=== PATIENT | male | born 1965 | race Hispanic/Latino ===

== ENCOUNTER 2019-11-17 09:01 | Day surgery (SDC) | payer BC ==
[~2019-11-17] VITALS: Ht 172.7 cm; Wt 92.1 kg
[~2019-11-17 09:01] MED LIST: COZAAR25 MG PO; GLUCOPHAGE500 MG PO; LIPITOR20 MG PO
[2019-11-17] MEDS ORDERED: TIMOLOL MALEATE5 M2 OP (09:26)
[2019-11-17] MEDS ORDERED: BRIMONIDINE TART5 M1 OD (09:26)
[2019-11-17] MEDS ORDERED: PRED FORTE5 ML OP (09:27)
--- NOTE | 2019-11-17 10:37 | NUR ---
11/17/19 Quiana Solano 1032-PATIENT ARRIVED TO PACU ON 2L NC RR EVEN LAYING LEFT LATERAL. IVF INFUSING AND ABDOMEN SOFT. PATIENT SNORING. AROUSES TO VERBAL STIMULI VERY DROWSY.
--- NOTE | 2019-11-17 17:13 | OR ---
[facility] [address] [place], [place] [address] Signed DATE OF OPERATION: 11/17/2019 SURGEON: Carlita Champion MD PREOPERATIVE DIAGNOSIS: Change in bowel habits with constipation. POSTOPERATIVE DIAGNOSIS: A 4 mm polyp at 45 cm. PROCEDURE: Colonoscopy with hot biopsy. ESTIMATED BLOOD LOSS: None. INDICATIONS: Neno is a 54-year-old gentleman, who had stopped smoking about four years ago. He has been having trouble with constipation ever since. This represents a change in bowel habits for him. He is now using MiraLAX 3 times a day with good results. He told me there is no family history of colon cancer or polyps. He was asked to see me with respect to the above. I met with Neno and his in the office. I gave him a pamphlet on colonoscopy and we looked at that together along with the risks including, but not limited to gas bloating, crampy abdominal pain, bleeding, perforation requiring surgery, and missed diagnosis. We also discussed the need for IV conscious sedation. He had expressed understanding and wished to proceed. DESCRIPTION OF PROCEDURE: Neno was taken into our endoscopy suite and placed in the left lateral decubitus position. He was given IV sedation with 6 mg of Versed and 125 mcg of fentanyl. A digital rectal exam was performed and this was unremarkable. The prostate gland does show some induration. The adult colonoscope was introduced and advanced under direct visualization of camera into the cecum itself without difficulty. His prep was good. He had a couple areas of liquid stool, which was suctioned out. We could see the appendiceal orifice and the ileocecal valve. The scope was slowly withdrawn. We took pictures throughout for photodocumentation. He had just a tiny 4 mm polyp back at 45 cm. It was easily removed with hot biopsy forceps. There was no diverticulosis. The rectum was unremarkable. Upon retroflexion of scope, there was no additional pathology noted above the anal canal. After this, the gas was suctioned out and the colonoscope removed. Neno tolerated the procedure quite well. Electronically Signed By: CARLITA CHAMPION MD 11/17/19 1713 PATIENT NAME: NENO GUAJARDO OPERATIVE REPORT DATE OF : 65 REPORT #: [id number] PHYSICIAN: CARLITA CHAMPION MD PCP: RAFY ALBERTO REPORT IS CONFIDENTIAL AND NOT TO BE RELEASED WITHOUT AUTHORIZATION [address] [address] Signed RECOMMENDATIONS: Neno will follow up my office in 7 to 14 days to review his results. Carlita Champion MD ALB/REUBENL /[id number] cc: MD Rafy Pena PA Copies: CARLITA CHAMPION MD, DAVID PA ~ Electronically Signed By: CARLITA CHAMPION MD 11/17/19 1713 PATIENT NAME: NENO GUAJARDO OPERATIVE REPORT DATE OF : 65 REPORT #: [id number] PHYSICIAN: CARLITA CHAMPION MD PCP: RAFY ALBERTO REPORT IS CONFIDENTIAL AND NOT TO BE RELEASED WITHOUT AUTHORIZATION
--- NOTE | 2019-11-22 12:50 | PATH ---
[facility] [address] [place], [place] [address] Signed SPECIMEN(S): A COLON POLYP AT 45 CM SPECIMEN SOURCE: A. COLON POLYP AT 45 CM CLINICAL HISTORY: Screening colonoscopy; constipation. MICROSCOPIC DESCRIPTION: Histologic sections of all submitted blocks are examined by light microscopy. These findings, together with the gross examination, support the pathologic diagnosis. FINAL PATHOLOGIC DIAGNOSIS: Colon, polyp at 45 cm, biopsy: - Benign colonic mucosa with prominent intramucosal lymphoid aggregate - No evidence of neoplasia. COMMENT: Sections of colonic tissue demonstrate a benign intramucosal lymphoid aggregate. Intramucosal lymphoid aggregates can sometimes appear as polyps endoscopically. They have no clinical significance. There is no evidence of dysplasia or malignancy. TWK:vlg:[id number] GROSS DESCRIPTION: The specimen, labeled "JR, 1," and designated on the requisition "colon polyp at 45 cm," is received in formalin and consists of one dominguez soft tissue fragment that measures 0.3 cm in greatest dimension. The specimen is entirely submitted in cassette (A1). AT (under the direct supervision of a pathologist) The Gross Description was prepared using a voice recognition system. The report was reviewed for accuracy; however, sound-alike word errors, addition and/or deletions may occur. If there is any question about this report, please contact Client Services. PERFORMING LABORATORY: The technical component was performed by [facility], [address] [place] [id number] (Principal Security Architect: Heather Lock MD; CLIA# [id number]). The professional interpretation was performed by [facility], [facility], [address] [place] [address]. PATIENT NAME: SCAR GUAJARDO PATHOLOGY DATE OF : 65 REPORT #: [id number] PHYSICIAN: MIRIAM PATHOLOGY PCP: RAFY ALBERTO REPORT IS CONFIDENTIAL AND NOT TO BE RELEASED WITHOUT AUTHORIZATION [address] [place], [place] [address] Signed Diagnostician: Eric Montero MD Pathologist Electronically Signed 11/22/2019 Copies: ~ PATIENT NAME: SCAR GUAJARDO PATHOLOGY DATE OF : 65 REPORT #: [id number] PHYSICIAN: MIRIAM PATHOLOGY PCP: RAFY ALBERTO REPORT IS CONFIDENTIAL AND NOT TO BE RELEASED WITHOUT AUTHORIZATION
== END 2019-11-17 11:20 | disposition home or self-care (01) ==
LOC: OPS 09:01 → DS 09:10 → OPS 10:30
PROVIDERS: ATTEND Colon & Rectal Surgery
PROC: 0DBE8ZZ Excision of Large Intestine, Via Natural or Artificial Opening Endoscopic (ICD-10-PCS; principal; 2019-11-17 10:30)
DX: K63.5 Polyp of colon (principal); E11.9 Type 2 diabetes mellitus without complications; E78.5 Hyperlipidemia, unspecified; Z87.891 Personal history of nicotine dependence; Z79.899 Other long term (current) drug therapy; Z79.84 Long term (current) use of oral hypoglycemic drugs
CPT/HCPCS: 99153; G0500; J2250; J3010; J7121